=== PATIENT | female | born 1975 | race American Indian/Alaskan Native ===

== ENCOUNTER 2018-10-16 13:03 | Emergency (ER) | payer OTHER ==
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
== END 2018-10-16 16:42 | disposition home or self-care (01) ==
LOC: ED 13:03
CPT/HCPCS: 99282